=== PATIENT | female | born 1980 | race Caucasian/White ===

== ENCOUNTER 2018-10-31 12:50 | Day surgery (SDC) | payer SELFPAY | END 2018-11-02 11:00 | disposition home or self-care (01) | LOC: SURG 12:50 | DX: K35.33 Acute appendicitis with perforation, localized peritonitis, and gangrene, with abscess (principal); K66.0 Peritoneal adhesions (postprocedural) (postinfection); K56.2 Volvulus; S36.439A Laceration of unspecified part of small intestine, initial encounter; Z90.49 Acquired absence of other specified parts of digestive tract ==